=== PATIENT | female | born 1970 | race Caucasian/White ===

== ENCOUNTER 2017-10-19 14:24 | Emergency (ER) | payer MEDICARE, MEDICAID ==
[2017-10-19 16:37] VITALS: BP 95/49
--- NOTE | 2017-10-20 22:01 | UC ---
Larissa Oh Gabriel, scribed for Jamil Alonzo MD on 10/19/17 at 1801 . Throat Pain/Nasal Daniel HPI - HPI Summary HPI Summary: This patient is a 46 year old F presenting to [facility] – [place] with a chief complaint of intermittent sore throat for the last three months. The patient rates the pain 6 /10 in severity and describes the pain as a raw feeling. Patient reports some bloody phlegm and SOB. Patient denies fever, chills, and CP. Patient recently quit smoking - History of Current Complaint Chief Complaint: UCRespiratory Stated Complaint: THROAT PAIN Time Seen by Provider: 10/19/17 17:57 Hx Obtained From: Patient Hx Last Menstrual Period: today Onset/Duration: Lasting Weeks - 12, Still Present Severity: Moderate Pain Intensity: 6 Pain Scale Used: 0-10 Numeric Cough: Sputum Appears Associated Signs & Symptoms: Positive: Negative - fever, chills, CP, Other - SOB - Allergies/Home Medications Allergies/Adverse Reactions: Allergies Allergy/AdvReac Type Severity Reaction Status Date / Time Penicillins Allergy Unknown Verified 10/19/17 16:39 Reaction Details Home Medications: Home Medications NK [No Home Medications Reported] 10/19/17 [History Confirmed 10/19/17] PMH/Surg Hx/FS Hx/Imm Hx Other History Of: Negative For: HIV, Hepatitis B, Hepatitis C - Surgical History Surgical History: None - Family History Known Family History: Negative: Diabetes, Renal Disease, Respiratory Disease, Seizure Disorder, Blood Disorder - Social History Alcohol Use: None Substance Use Type: None Smoking Status (MU): Former Smoker Review of Systems Constitutional: Negative - fever ENT: Sore Throat, Other - some bloody phlegm Cardiovascular: Negative - CP All Other Systems Reviewed And Are Negative: Yes Physical Exam Triage Information Reviewed: Yes Vital Signs: Initial Vital Signs Temp 98.0 F 10/19/17 16:34 Pulse 72 10/19/17 16:34 Resp 18 10/19/17 16:34 BP 95/49 10/19/17 16:34 Pulse Ox 98 10/19/17 16:34 Vital Signs Reviewed: Yes - Additional Comments Vital signs: Reviewed Gen.: Patient is a well developed and nourished female in no acute distress. Patient is sitting comfortably on the stretcher. Head: Normacephalic and atraumatic Eyes: PERRLA, EOMI x2. Ears: Right ear canal and TM WNL and Left ear canal and TM WNL Nose and mouth: Nose with dry mucosa and clear discharge, mild pharyngeal erythema with no exudate. Neck: Supple, Positive bilateral submandibular and anterior cervical lymphadenopathy. No JVD Lungs: CTA B/L CVS: S1 & S2 present. No murmurs appreciated. ABDOMEN: Soft NT w/ positive BS. EXT: FROM x 4 NEURO: A+O X 3. Throat Pain/Nasal Course/Dx - Course Assessment/Plan: This patient is a 46 year old F presenting to [facility] – [place] with a chief complaint of intermittent sore throat for the last three months. The patient rates the pain 6/10 in severity and describes the pain as a raw feeling. Patient reports some bloody phlegm and SOB. Patient denies fever, chills, and CP. Patient recently quit smoking. Patient has a negative rapid strep. I discussed all the findings and test results with the patient. Pt was instructed to return to the urgent care or go to ER immediately if any of the symptoms return or worsens. Plan of care was discussed with the patient and pt understands and agrees. All questions were answered to patient satisfaction. There were no further complaints or concerns. . Patient will be diagnosed with Viral laryngitis. Patient will be discharged and follow up from PCP. The patient is agreeable with this plan. - Differential Dx/Diagnosis Differential Diagnosis/HQI/PQRI: Laryngitis, Pharyngitis, Tonsillitis, URI Provider Diagnoses: Pharyngitis likely viral Discharge - Discharge Plan Condition: Stable Disposition: HOME Patient Education Materials: Pharyngitis (ED) Referrals: Florecita Vieira MD [Primary Care Provider] - Additional Instructions: Take tylenol or ibuprofen as instructed Increase your fluid intake Return to the if symptoms worsen The documentation as recorded by the Larissa carrion Gabriel accurately reflects the service I personally performed and the decisions made by me, Jamil Alonzo MD.
== END 2017-10-19 18:35 | disposition home or self-care (01) ==
LOC: UCEAST 14:24
DX: J02.9 Acute pharyngitis, unspecified (principal); Z88.0 Allergy status to penicillin; Z87.891 Personal history of nicotine dependence
CPT/HCPCS: 87651; 99211; G0463

== ENCOUNTER 2018-12-19 18:54 | Emergency (ER) | payer MEDICARE, MEDICAID | END 2018-12-19 19:14 | disposition left against medical advice (07) | LOC: ED 18:54 | DX: M25.519 Pain in unspecified shoulder (principal); Z53.21 Procedure and treatment not carried out due to patient leaving prior to being seen by health care provider ==

== ENCOUNTER 2019-07-31 08:29 | Inpatient (IN) | payer MEDICARE, MEDICAID ==
[2019-07-31 09:05] LABS: ABS Basophils 0.1 10^3/ul (0-0.2); ABS Lymphocytes 1.6 10^3/ul (1.0-4.8); ABS Monocytes 0.3 10^3/ul (0-0.8); ABS Neutrophils 3.8 10^3/ul (1.5-7.7); Eosinophil % 0.5 %; Hematocrit 43 % (35-47); Hemoglobin 14.7 g/dL (12.0-16.0); Lymphocyte % 28.1 %; Mean Corpuscular HGB Conc 34 g/dL (31-36); Mean Corpuscular Hemoglobin 33 pg (27-31); Mean Corpuscular Volume 97 fL (80-97); Mean Platelet Volume 7.1 fL (7.4-10.4); Nucleated Red Blood Cells % 0.1; Platelet Count 321 10^3/uL (150-450); Red Blood Count 4.48 10^6 /uL (3.70-4.87); Red Cell Distribution Width 13 % (10-15); White Blood Count 5.8 10^3/uL (3.5-10.8)
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
[2019-07-31 09:20] LABS: ALT 9 U/L (7-52); AST 11 U/L (13-39); Albumin 4.6 g/dL (3.2-5.2); Albumin/Globulin Ratio 1.5 (1-3); Alkaline Phosphatase 36 U/L (34-104); Anion Gap 6 mmol/L (2-11); BUN/Creatinine Ratio 17.3 (8-20); Blood Urea Nitrogen 13 mg/dL (6-24); CO2 Carbon Dioxide 28 mmol/L (22-32); Chloride 106 mmol/L (101-111); EGFR African American 99.4 (>60); EGFR Non-African American 82.1 (>60); Glucose 99 mg/dL (70-100); Potassium 3.7 mmol/L (3.5-5.0); Sodium 140 mmol/L (135-145); Total Protein 7.6 g/dL (6.4-8.9)
[2019-07-31 09:57] LABS: Acetaminophen < 15 mcg/mL; Alcohol < 10 mg/dL (<10); Salicylate < 2.50 mg/dL (<30)
[2019-07-31 10:06] LABS: HIV 4th Generation Nonreactive (Nonreactive)
[2019-07-31 10:11] LABS: TSH (Thyroid Stimulating Horm) 0.97 mcIU/mL (0.34-5.60)
[2019-07-31 11:30] LABS: Urine Appearance Cloudy; Urine Bacteria Absent (Absent); Urine Bilirubin Negative (Negative); Urine Blood Negative (Negative); Urine Color Yellow; Urine Glucose Negative (Negative); Urine Ketones Negative (Negative); Urine Nitrite Negative (Negative); Urine Protein 1+(30 mg/dL) (Negative); Urine Red Blood Cell 2+(6-10/hpf) (Absent); Urine Specific Gravity 1.027 (1.010-1.030); Urine Squamous Epithelial Cell Present (Absent); Urine Urobilinogen Negative (Negative); Urine White Blood Cell 2+(11-20/hpf) (Absent)
[2019-07-31 11:41] LABS: Urine Benzodiazepine Screen None Detected (None Detect); Urine Opiates Screen None Detected (None Detect)
[2019-07-31] MEDS ORDERED: Ondansetron INJ* 2 MG/ML VIAL IV ONE (13:14)
[2019-07-31] MEDS ORDERED: Ondansetron ODT TAB* 4 MG PO ONE (13:18)
[2019-07-31] MEDS ORDERED: Ondansetron ODT TAB* 4 MG SL ONE (15:35)
[2019-07-31] MEDS ORDERED: Metoclopramide TAB* 10 MG PO ONE (17:19)
--- NOTE | 2019-07-31 19:46 | ED ---
Progress - Consult/PCP Time Called: 15:00 Re-Evaluation - Re-Evaluation First Eval Re-Evaluation Time: 11:30 Change: Improved - pt denies any nausea/vomiting or abd pain Second Eval Change: Worse - pt c/o chest pain - diffuse - EKG obtained which shows NSR and troponin obtaine Course/Dx - Course Course Of Treatment: On arrival into the ED, an EKG was immediately performed. This shows normal sinus rhythm. Arrival into the ED, an EKG was performed. This shows normal sinus rhythm. Patient appears well and stable, nondiaphoretic and nontoxic appearing. Pupils pinpoint non-reactive. Pt c/o abd pain without nausea. No difficulty breathing. Denies SOB. Pt afebrile, no tachycardia and appears stable. Poison control called at 9:05am. patient is medically clear. patient will be admitted by dr yung for mood disorder - Diagnoses Provider Diagnoses: Mood disorder Discharge ED - Sign-Out/Discharge Documenting (check all that apply): Patient Departure, Receiving Sign-Out Receiving patient FROM: Kristi Overton - Discharge Plan Condition: Stable Disposition: PSYCHIATRIC FACILITY[place] [place] - Billing Disposition and Condition Condition: STABLE Disposition: Psychiatric Facility [facility] [place] - Attestation Statements Provider Attestation: I was available for consult. This patient was seen by the GIBSON. The patient was not presented to, seen by, or examined by me. -
[2019-08-01] MEDS ORDERED: Al Hydrox/Mg Hydrox/Simet LIQ* 30 ML UDC PO PRN (00:20)
[2019-08-01] MEDS: Vitamin THERAPEUTIC TAB PO SCH (08:27)
[2019-08-01 08:37] LABS: HDL Cholesterol 64.1 mg/dL
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
[2019-08-01] MEDS ORDERED: cloNIDine TAB* 0.1 MG PO ONE (12:59)
[2019-08-01] MEDS ORDERED: Loperamide CAP* 2 MG PO ONE (13:03)
[2019-08-01] MEDS ORDERED: Nicotine* 2MG (FRUIT FLAVOR) GUM PO PRN (13:28)
[2019-08-01] MEDS: Escitalopram * 10 MG TAB PO SCH (14:06)
[2019-08-01] MEDS: Acetaminophen TAB* 325 MG PO PRN (14:08)
[2019-08-01] MEDS: traZODone TAB* 50 MG TAB PO SCH (21:44)
[2019-08-02] MEDS: cloNIDine TAB* 0.1 MG PO PRN ×3 (04:50→16:15)
[2019-08-02] MEDS: Escitalopram * 10 MG TAB PO SCH (09:37)
[2019-08-02] MEDS: Vitamin THERAPEUTIC TAB PO SCH (09:37)
--- NOTE | 2019-08-02 10:11 | PN ---
Subjective - Subjective Date of Service: 08/02/19 Service Type: 35080 Hosp care 35 min high complexity Subjective: CC: " I feel bad" Patient reported feeling "horrible" due to current living situation, feeling depressed and legal issues. She reported that she wants to stop using drugs. She reported adequate sleep and appetite. No behavioral incidents overnight. She reported that having menopausal symptoms and cause her to be stressed out. Objective - General Observations Appearance: Disheveled Appears Stated Age: Yes Stature: Thin Posture: Slumped Eye Contact: Avoidant Behavior/Activity: Impulsive - Interaction Observations Attitude Towards Examiner: Anxious Stated Mood: Dysphoric Affect: Restricted Speech Pattern/Tone: Normal Volume Thought Process: [place] Perception: Depersonalization Thought Content: Self-Deprecatory Thought Process: Lethality: Passive Wish Hallucination Type: Denies Delusion Type: Somatic - Cognitive Function Orientation: A&O x 4 Level of Consciousness: Awake - Medication Compliance Cooperative with Inpatient Medication Regimen: Yes - Group Participation Participates in Group Activities: Partial Assessment - Assessment Merits Inpatient Hospitalization: For Immediate Safety Clinical Impression: 48 year old female with history of Borderline Personality Disorder, Tobacco use disorder, Cocaine use disorder, Opiate withdrawal came to the hospital following a suicide attempt. Plan - Plan Treatment Plan: Name: SMILEY AYALA Birthdate: 1970 [id number] Plan #Q15 minute observation # The patient requires psychiatric inpatient admission at this time to assure safety, receive treatment and work toward stabilization. # Clonidine Opiate withdrawal protocol with holding parameters in order set # Continue lexapro 10mg po daily for depression # Menopause symptoms SSRI can help and recommend [facility]. # EKG ordered and reviewed # DBT for BPD # Follow up care to be arranged # Obtain collateral information once release is signed. # Collaboration with Social Work Substance Abuse resources offered and patient interested in pursing substance abuse rehabilitation Tobacco use disorder: nicotine supplement offered and put in place. #Goals before discharge include: To eliminate/ reduce suicidal ideation Tentative Discharge: Pending psychiatric stabilization Sodium 140 mmol/L (135-145) 07/31/19 08:54 Potassium 3.7 mmol/L (3.5-5.0) 07/31/19 08:54 BUN 13 mg/dL (6-24) 07/31/19 08:54 Creatinine 0.75 mg/dL (0.51-0.95) 07/31/19 08:54 Hemoglobin A1c 5.3 % (4.0-5.6) 08/01/19 07:41 Calcium 10.0 mg/dL (8.6-10.3) 07/31/19 08:54 AST 11 U/L (13-39) L 07/31/19 08:54 ALT 9 U/L (7-52) 07/31/19 08:54 Triglycerides 81 mg/dL 08/01/19 07:41 Cholesterol 191 mg/dL 08/01/19 07:41 LDL Cholesterol 111 mg/dL 08/01/19 07:41 Continued Medication Management: Continue Outpt Medication Medications: Current Medications Acetaminophen (Tylenol Tab*) 650 mg PO Q4H PRN PRN Reason: PAIN or TEMP > 101 F Last Admin: 08/01/19 14:08 Dose: 650 mg Al Hydrox/Mg Hydrox/Simethicone (Maalox Plus*) 30 ml PO Q4H PRN PRN Reason: INDIGESTION Clonidine HCl (Catapres Tab*) 0.1 mg PO Q4H PRN PRN Reason: WITHDRAWAL - OPIATE Last Admin: 08/02/19 09:37 Dose: 0.1 mg Escitalopram Oxalate (Lexapro *) 10 mg PO DAILY [facility] Last Admin: 08/02/19 09:37 Dose: 10 mg Multivitamins (Theragran Tab*) 1 tab PO DAILY [facility] Last Admin: 08/02/19 09:37 Dose: 1 tab Nicotine Polacrilex (Nicotine Gum*) 2 mg PO Q2H PRN PRN Reason: CRAVING Trazodone HCl (Desyrel Tab*) 50 mg PO BEDTIME [facility] Last Admin: 08/01/19 21:44 Dose: 50 mg - Discharge Plan Discharge Plan: Inpatient Hospitalization
[2019-08-02 20:53] LABS: Hepatitis C Antibody Negative (Negative)
[2019-08-02] MEDS: traZODone TAB* 50 MG TAB PO SCH (21:19)
[2019-08-03] MEDS: Escitalopram * 10 MG TAB PO SCH (08:38)
[2019-08-03] MEDS: Vitamin THERAPEUTIC TAB PO SCH (08:38)
[2019-08-03] MEDS ORDERED: Influenza VAC *QUAD* 2019-20* 0.5 ML SYRINGE IM ONE (09:00)
[2019-08-03] MEDS: cloNIDine TAB* 0.1 MG PO PRN (14:57)
[2019-08-03] MEDS: traZODone TAB* 50 MG TAB PO SCH (22:05)
[2019-08-04] MEDS: Vitamin THERAPEUTIC TAB PO SCH (09:35)
[2019-08-04] MEDS: Escitalopram * 10 MG TAB PO SCH (09:35)
[2019-08-04] MEDS: cloNIDine TAB* 0.1 MG PO PRN ×2 (09:36→19:06)
--- NOTE | 2019-08-04 19:26 | PN ---
Subjective - Subjective Date of Service: 08/04/19 Subjective: Smiley c/o feeling cold, headache and body aches, poor sleep. She endorses depressed mood and suicidal ideation but contracts to approach staff. She finds the Clonidine helpful. She is receptive to support and psycho-education and remains motivated to go to inpatient rehab. Per staff, she remains adherent to unit's routines. Objective - General Observations Appearance: Well Groomed Appears Stated Age: Yes Stature: WNL Posture: WNL Eye Contact: Average Behavior/Activity: WNL - Interaction Observations Attitude Towards Examiner: Cooperative Stated Mood: Dysphoric, Anxious Affect: Restricted Speech Pattern/Tone: Clear, Appropriate, Normal Volume Thought Process: Coherent, Goal Directed Perception: WNL Thought Content: WNL Thought Process: Lethality: Passive Wish Hallucination Type: None Delusion Type: None - Cognitive Function Orientation: A&O x 4 Level of Consciousness: Alert Cognition: WNL Judgment Within Normal Limits: Yes - Medication Compliance Cooperative with Inpatient Medication Regimen: Yes - Group Participation Participates in Group Activities: Yes Assessment - Assessment Merits Inpatient Hospitalization: For Ongoing Evaluation, Consolidate Improvements, For Discharge Planning Clinical Impression: 48 year old female with history of Borderline Personality Disorder, Tobacco use disorder, Cocaine use disorder, Opiate withdrawal came to the hospital following a suicide attempt. Progressing through detox from opiates with some discomfort but remains motivated for inpatient rehab. Plan - Plan Treatment Plan: Name: SMILEY AYALA Birthdate: 1970 [id number] Plan #Q15 minute observation # The patient requires psychiatric inpatient admission at this time to assure safety, receive treatment and work toward stabilization. # Clonidine Opiate withdrawal protocol with holding parameters in order set # Continue lexapro 10mg po daily for depression # Menopause symptoms SSRI can help and [facility]. # EKG ordered and reviewed # DBT for BPD # Follow up care to be arranged # Obtain collateral information once release is signed. # Collaboration with Social Work Substance Abuse resources offered and patient interested in pursing substance abuse rehabilitation Tobacco use disorder: nicotine supplement offered and put in place. #Goals before discharge include: To eliminate/ reduce suicidal ideation Tentative Discharge: Pending psychiatric stabilization Sodium 140 mmol/L (135-145) 07/31/19 08:54 Potassium 3.7 mmol/L (3.5-5.0) 07/31/19 08:54 BUN 13 mg/dL (6-24) 07/31/19 08:54 Creatinine 0.75 mg/dL (0.51-0.95) 07/31/19 08:54 Hemoglobin A1c 5.3 % (4.0-5.6) 08/01/19 07:41 Calcium 10.0 mg/dL (8.6-10.3) 07/31/19 08:54 AST 11 U/L (13-39) L 07/31/19 08:54 ALT 9 U/L (7-52) 07/31/19 08:54 Triglycerides 81 mg/dL 08/01/19 07:41 Cholesterol 191 mg/dL 08/01/19 07:41 LDL Cholesterol 111 mg/dL 08/01/19 07:41 Medications: Current Medications Acetaminophen (Tylenol Tab*) 650 mg PO Q4H PRN PRN Reason: PAIN or TEMP > 101 F Last Admin: 08/01/19 14:08 Dose: 650 mg Al Hydrox/Mg Hydrox/Simethicone (Maalox Plus*) 30 ml PO Q4H PRN PRN Reason: INDIGESTION Clonidine HCl (Catapres Tab*) 0.1 mg PO Q4H PRN PRN Reason: WITHDRAWAL - OPIATE Last Admin: 08/04/19 19:06 Dose: 0.1 mg Escitalopram Oxalate (Lexapro *) 10 mg PO DAILY [facility] Last Admin: 08/04/19 09:35 Dose: 10 mg Multivitamins (Theragran Tab*) 1 tab PO DAILY [facility] Last Admin: 08/04/19 09:35 Dose: 1 tab Nicotine Polacrilex (Nicotine Gum*) 2 mg PO Q2H PRN PRN Reason: CRAVING Trazodone HCl (Desyrel Tab*) 50 mg PO BEDTIME [facility] Last Admin: 08/03/19 22:05 Dose: 50 mg - Discharge Plan Discharge Plan: Drug/Alcohol Rehab Outpatient Program: TBD
[2019-08-04] MEDS: traZODone TAB* 50 MG TAB PO SCH (22:03)
[2019-08-05] MEDS: Escitalopram * 10 MG TAB PO SCH (09:41)
[2019-08-05] MEDS: Vitamin THERAPEUTIC TAB PO SCH (09:41)
--- NOTE | 2019-08-05 11:59 | PN ---
Subjective - Subjective Date of Service: 08/05/19 Service Type: 43234 Hosp care 35 min high complexity Subjective: Nursing Report: Patient was visible on unit, no behavioral incidents. Slept overnight. CC: "I feel awful" Patient was seen and evaluated today. She reported being depressed and suicidal and "feels awful". The patient reported having mental health court today for legal charges and plans to contact her sports development officer. Patient reported being in pain all over. Patient reported having hot flashes. Patient slept 6.5 hours overnight The patient reported attending some groups. Patient reported that she is tolerating medications without side effects. Objective - General Observations Appearance: Neat Appears Stated Age: Yes Stature: Thin Posture: Slumped Eye Contact: Avoidant Behavior/Activity: Slowed - Interaction Observations Attitude Towards Examiner: Confused Stated Mood: Dysphoric Affect: Restricted Speech Pattern/Tone: Perseverating Thought Process: [place] Perception: WNL Thought Content: Self-Deprecatory Thought Process: Lethality: Passive Wish Hallucination Type: Denies Delusion Type: Somatic - Cognitive Function Orientation: A&O x 4 Level of Consciousness: Awake - Medication Compliance Cooperative with Inpatient Medication Regimen: Yes - Group Participation Participates in Group Activities: Partial Assessment - Assessment Merits Inpatient Hospitalization: For Immediate Safety Clinical Impression: 48 year old female with history of Borderline Personality Disorder, Tobacco use disorder, Cocaine use disorder, Opiate withdrawal came to the hospital following a suicide attempt by overdosing on Tramadol. Plan - Plan Treatment Plan: Name: SMILEY AYALA Birthdate: 1970 [id number] Plan #Q15 minute observation # The patient requires psychiatric inpatient admission at this time to assure safety, receive treatment and work toward stabilization. # Discontinue Clonidine # Increase lexapro 20mg po daily for depression # Menopause symptoms SSRI can help and [facility]. # EKG ordered and reviewed # DBT for BPD # Follow up care to be arranged # Substance abuse rehabilitation referrals sent # Collaboration with Social Work Substance Abuse resources offered and patient interested in pursing substance abuse rehabilitation Tobacco use disorder: nicotine supplement offered and put in place. #Goals before discharge include: To eliminate/ reduce suicidal ideation Tentative Discharge: Pending psychiatric stabilization Sodium 140 mmol/L (135-145) 07/31/19 08:54 Potassium 3.7 mmol/L (3.5-5.0) 07/31/19 08:54 BUN 13 mg/dL (6-24) 07/31/19 08:54 Creatinine 0.75 mg/dL (0.51-0.95) 07/31/19 08:54 Hemoglobin A1c 5.3 % (4.0-5.6) 08/01/19 07:41 Calcium 10.0 mg/dL (8.6-10.3) 07/31/19 08:54 AST 11 U/L (13-39) L 07/31/19 08:54 ALT 9 U/L (7-52) 07/31/19 08:54 Triglycerides 81 mg/dL 08/01/19 07:41 Cholesterol 191 mg/dL 08/01/19 07:41 LDL Cholesterol 111 mg/dL 08/01/19 07:41 Continued Medication Management: Continue Outpt Medication Medications: Current Medications Acetaminophen (Tylenol Tab*) 650 mg PO Q4H PRN PRN Reason: PAIN or TEMP > 101 F Last Admin: 08/01/19 14:08 Dose: 650 mg Al Hydrox/Mg Hydrox/Simethicone (Maalox Plus*) 30 ml PO Q4H PRN PRN Reason: INDIGESTION Clonidine HCl (Catapres Tab*) 0.1 mg PO Q4H PRN PRN Reason: WITHDRAWAL - OPIATE Last Admin: 08/04/19 19:06 Dose: 0.1 mg Escitalopram Oxalate (Lexapro *) 10 mg PO DAILY [facility] Last Admin: 08/05/19 09:41 Dose: 10 mg Multivitamins (Theragran Tab*) 1 tab PO DAILY [facility] Last Admin: 08/05/19 09:41 Dose: 1 tab Nicotine Polacrilex (Nicotine Gum*) 2 mg PO Q2H PRN PRN Reason: CRAVING Sodium Chloride (Sodium Chloride 0.65% Nasal Drops*) 1 drop BOTH NARES Q4H PRN PRN Reason: DRY NOSE Trazodone HCl (Desyrel Tab*) 50 mg PO BEDTIME [facility] Last Admin: 08/04/19 22:03 Dose: 50 mg - Discharge Plan Discharge Plan: Inpatient Hospitalization
[2019-08-05] MEDS ORDERED: Loperamide CAP* 2 MG PO PRN (13:14)
[2019-08-05] MEDS ORDERED: Loperamide CAP* 2 MG PO ONE (13:51)
[2019-08-05] MEDS: traZODone TAB* 50 MG TAB PO SCH (20:50)
[2019-08-06] MEDS: Vitamin THERAPEUTIC TAB PO SCH (09:46)
[2019-08-06] MEDS: Escitalopram * 10 MG TAB PO SCH (09:46)
[2019-08-06] MEDS: Saline NASAL DROPS 0.65%* 1 DROP BTL BOTH NARES PRN (09:48)
[2019-08-06] MEDS ORDERED: busPIRone TAB* 15 MG PO SCH (13:00)
[2019-08-06] MEDS: Acetaminophen TAB* 325 MG PO PRN ×2 (13:06→17:47)
--- NOTE | 2019-08-06 14:45 | PN ---
Subjective - Subjective Date of Service: 08/06/19 Service Type: 73700 Hosp care 35 min high complexity Subjective: Nursing Report: Patient was visible on unit, no behavioral incidents. Slept overnight. CC: "I feel like a mess" Patient was seen and evaluated today. She reported feeling awful. The patient reported that she continues to have hot and cold sweats from menopause. The patient reported increased anxiety. Patient reported that she is tolerating medications without side effects. Objective - General Observations Appearance: Disheveled Appears Stated Age: Yes Stature: WNL Posture: WNL Eye Contact: Average Behavior/Activity: Accelerated - Interaction Observations Attitude Towards Examiner: Anxious Stated Mood: Dysphoric Affect: Flat Speech Pattern/Tone: Excessive Thought Process: Disorganized Perception: Depersonalization Thought Content: Self-Deprecatory Thought Process: Lethality: Passive Wish Hallucination Type: Denies Delusion Type: Somatic - Cognitive Function Orientation: A&O x 4 Level of Consciousness: Awake - Medication Compliance Cooperative with Inpatient Medication Regimen: Yes - Group Participation Participates in Group Activities: Partial Assessment - Assessment Merits Inpatient Hospitalization: For Immediate Safety Clinical Impression: 48 year old female with history of Borderline Personality Disorder, Tobacco use disorder, Cocaine use disorder, Opiate withdrawal came to the hospital following a suicide attempt by overdosing on Tramadol. Plan - Plan Treatment Plan: Name: SMILEY AYALA Birthdate: 1970 [id number] Plan #Q15 minute observation # The patient requires psychiatric inpatient admission at this time to assure safety, receive treatment and work toward stabilization. # Increase lexapro 20mg po daily for depression # DBT # Buspar 15mg TID for anxiety # Substance abuse rehabilitation referral # Collaboration with Social Work Substance Abuse resources offered and patient interested in pursing substance abuse rehabilitation Tobacco use disorder: nicotine supplement offered and put in place. #Goals before discharge include: To eliminate/ reduce suicidal ideation Tentative Discharge: Pending psychiatric stabilization Sodium 140 mmol/L (135-145) 07/31/19 08:54 Potassium 3.7 mmol/L (3.5-5.0) 07/31/19 08:54 BUN 13 mg/dL (6-24) 07/31/19 08:54 Creatinine 0.75 mg/dL (0.51-0.95) 07/31/19 08:54 Hemoglobin A1c 5.3 % (4.0-5.6) 08/01/19 07:41 Calcium 10.0 mg/dL (8.6-10.3) 07/31/19 08:54 AST 11 U/L (13-39) L 07/31/19 08:54 ALT 9 U/L (7-52) 07/31/19 08:54 Triglycerides 81 mg/dL 08/01/19 07:41 Cholesterol 191 mg/dL 08/01/19 07:41 LDL Cholesterol 111 mg/dL 08/01/19 07:41 Continued Medication Management: Continue Outpt Medication Medications: Current Medications Acetaminophen (Tylenol Tab*) 650 mg PO Q4H PRN PRN Reason: PAIN or TEMP > 101 F Last Admin: 08/06/19 13:06 Dose: 650 mg Al Hydrox/Mg Hydrox/Simethicone (Maalox Plus*) 30 ml PO Q4H PRN PRN Reason: INDIGESTION Buspirone HCl (Buspar Tab *) 15 mg PO BID [facility] Last Admin: 08/06/19 13:08 Dose: 15 mg Escitalopram Oxalate (Lexapro *) 20 mg PO DAILY [facility] Last Admin: 08/06/19 09:46 Dose: 20 mg Multivitamins (Theragran Tab*) 1 tab PO DAILY [facility] Last Admin: 08/06/19 09:46 Dose: 1 tab Nicotine Polacrilex (Nicotine Gum*) 2 mg PO Q2H PRN PRN Reason: CRAVING Sodium Chloride (Sodium Chloride 0.65% Nasal Drops*) 1 drop BOTH NARES Q4H PRN PRN Reason: DRY NOSE Last Admin: 08/06/19 09:48 Dose: 2 drp Trazodone HCl (Desyrel Tab*) 50 mg PO BEDTIME [facility] Last Admin: 08/05/19 20:50 Dose: 50 mg - Discharge Plan Discharge Plan: Drug/Alcohol Rehab
[2019-08-06] MEDS: busPIRone TAB* 15 MG PO SCH ×2 (15:32→21:22)
[2019-08-06] MEDS: traZODone TAB* 50 MG TAB PO SCH (21:22)
[2019-08-07] MEDS: busPIRone TAB* 15 MG PO SCH ×3 (08:31→21:19)
[2019-08-07] MEDS: Escitalopram * 10 MG TAB PO SCH (08:31)
[2019-08-07] MEDS: Vitamin THERAPEUTIC TAB PO SCH (08:31)
--- NOTE | 2019-08-07 14:18 | PN ---
Subjective - Subjective Date of Service: 08/08/19 Service Type: 55465 Hosp care 35 min high complexity Subjective: Nursing Report: Patient was visible on unit, no behavioral incidents. Slept overnight. Attending group activities. CC: "I am trying my best Patient was seen and evaluated today in the common room. The patient reported she fis doing her best. She is requesting a UA to be done because she thinks she has a UTI She reported having adequate appetite and sleep. The patient reports attending and participating in day groups. Per nursing no behavioral issues or overnight events reported. Patient reported that she is tolerating medications without side effects. Objective - General Observations Appearance: Neat Appears Stated Age: Yes Stature: WNL Posture: WNL Eye Contact: Average Behavior/Activity: Slowed - Interaction Observations Attitude Towards Examiner: Anxious, Dismissive Stated Mood: Dysphoric Affect: Restricted Speech Pattern/Tone: Normal Volume Thought Process: [place] Perception: Depersonalization Thought Content: Self-Deprecatory Hallucination Type: Denies Delusion Type: Denies - Cognitive Function Orientation: A&O x 4 Level of Consciousness: Awake - Medication Compliance Cooperative with Inpatient Medication Regimen: Yes - Group Participation Participates in Group Activities: Yes Assessment - Assessment Merits Inpatient Hospitalization: For Immediate Safety Clinical Impression: 48 year old female with history of Borderline Personality Disorder, Tobacco use disorder, Cocaine use disorder, Opiate withdrawal came to the hospital following a suicide attempt by overdosing on Tramadol. Plan - Plan Treatment Plan: Name: SMILEY AYALA Birthdate: 1970 [id number] Plan #Q30 minute observation with staff pass # The patient requires psychiatric inpatient admission at this time to assure safety, receive treatment and work toward stabilization. # Continue lexapro 20mg po daily for depression # DBT # Buspar 15mg TID for anxiety # Substance abuse rehabilitation referral # Collaboration with Social Work Substance Abuse resources offered and patient interested in pursing substance abuse rehabilitation Tobacco use disorder: nicotine supplement offered and put in place. #Goals before discharge include: To eliminate/ reduce suicidal ideation Tentative Discharge: Pending psychiatric stabilization Sodium 140 mmol/L (135-145) 07/31/19 08:54 Potassium 3.7 mmol/L (3.5-5.0) 07/31/19 08:54 BUN 13 mg/dL (6-24) 07/31/19 08:54 Creatinine 0.75 mg/dL (0.51-0.95) 07/31/19 08:54 Hemoglobin A1c 5.3 % (4.0-5.6) 08/01/19 07:41 Calcium 10.0 mg/dL (8.6-10.3) 07/31/19 08:54 AST 11 U/L (13-39) L 07/31/19 08:54 ALT 9 U/L (7-52) 07/31/19 08:54 Triglycerides 81 mg/dL 08/01/19 07:41 Cholesterol 191 mg/dL 08/01/19 07:41 LDL Cholesterol 111 mg/dL 08/01/19 07:41 Continued Medication Management: Continue Outpt Medication Medications: Current Medications Acetaminophen (Tylenol Tab*) 650 mg PO Q4H PRN PRN Reason: PAIN or TEMP > 101 F Last Admin: 08/06/19 17:47 Dose: 650 mg Al Hydrox/Mg Hydrox/Simethicone (Maalox Plus*) 30 ml PO Q4H PRN PRN Reason: INDIGESTION Buspirone HCl (Buspar Tab *) 15 mg PO TID [facility] Last Admin: 08/07/19 14:05 Dose: 15 mg Escitalopram Oxalate (Lexapro *) 20 mg PO DAILY [facility] Last Admin: 08/07/19 08:31 Dose: 20 mg Multivitamins (Theragran Tab*) 1 tab PO DAILY [facility] Last Admin: 08/07/19 08:31 Dose: 1 tab Nicotine Polacrilex (Nicotine Gum*) 2 mg PO Q2H PRN PRN Reason: CRAVING Polyvinyl Alcohol (Polyvinyl Alcohol 1.4% Opth*) 1 drop BOTH EYES Q2H PRN PRN Reason: DRY EYE Sodium Chloride (Sodium Chloride 0.65% Nasal Drops*) 1 drop BOTH NARES Q4H PRN PRN Reason: DRY NOSE Last Admin: 08/06/19 09:48 Dose: 2 drp Trazodone HCl (Desyrel Tab*) 50 mg PO BEDTIME [facility] Last Admin: 08/06/19 21:22 Dose: 50 mg - Discharge Plan Discharge Plan: Drug/Alcohol Rehab
[2019-08-07 14:48] LABS: Urine Appearance Cloudy; Urine Bilirubin Negative (Negative); Urine Blood Negative (Negative); Urine Color Yellow; Urine Glucose Negative (Negative); Urine Ketones Negative (Negative); Urine Nitrite Negative (Negative); Urine Protein Negative (Negative); Urine Specific Gravity 1.023 (1.010-1.030); Urine Urobilinogen Negative (Negative)
[2019-08-07] MEDS: Artificial Tears* 15 ML BTL BOTH EYES PRN ×2 (16:27→18:27)
[2019-08-07] MEDS: traZODone TAB* 50 MG TAB PO SCH (21:19)
[2019-08-08] MEDS: busPIRone TAB* 15 MG PO SCH ×3 (09:44→21:17)
[2019-08-08] MEDS: Escitalopram * 10 MG TAB PO SCH (09:44)
[2019-08-08] MEDS: Vitamin THERAPEUTIC TAB PO SCH (09:45)
--- NOTE | 2019-08-08 13:05 | PN ---
BSU: Group Therapy Note - Service Type Service Type: 30147 Group Psychotherapy - Cognitive Behavioral Group Therapy ( CBT):Patient was attentive and participatory in CBT programming this morning, and remained in good behavioral control. Patient expressed positive insights regarding relevant treatment interventions and goals.
[2019-08-08] MEDS: Artificial Tears* 15 ML BTL BOTH EYES PRN (14:04)
[2019-08-08] MEDS: Acetaminophen TAB* 325 MG PO PRN (17:57)
[2019-08-08] MEDS: traZODone TAB* 50 MG TAB PO SCH (21:17)
[2019-08-09] MEDS: busPIRone TAB* 15 MG PO SCH ×3 (09:19→21:51)
[2019-08-09] MEDS: Escitalopram * 10 MG TAB PO SCH (09:19)
[2019-08-09] MEDS: Vitamin THERAPEUTIC TAB PO SCH (09:20)
[2019-08-09] MEDS: Saline NASAL DROPS 0.65%* 1 DROP BTL BOTH NARES PRN (09:22)
[2019-08-09] MEDS: Artificial Tears* 15 ML BTL BOTH EYES PRN ×2 (09:22→14:04)
--- NOTE | 2019-08-09 11:08 | PN ---
BSU: Group Therapy Note - Service Type Service Type: 61639 Group Psychotherapy - Cognitive Behavioral Group Therapy ( CBT):Patient was attentive and participatory in CBT programming this morning, and remained in good behavioral control. Patient expressed positive insights regarding relevant treatment interventions and goals.
--- NOTE | 2019-08-09 16:01 | PN ---
Subjective - Subjective Date of Service: 08/09/19 Service Type: 12726 Hosp care 35 min high complexity Subjective: Nursing Report: Patient was visible on unit, no behavioral incidents. Slept overnight. Attending group activities. CC: "I am trying Patient was seen and evaluated today in the common room. She reported having adequate appetite and sleep. The patient reports attending and participating in day groups. Per nursing no behavioral issues or overnight events reported. Patient reported that she is tolerating medications without side effects. Objective - General Observations Appearance: Neat Appears Stated Age: Yes Stature: WNL Posture: WNL Eye Contact: Average Behavior/Activity: Accelerated - Interaction Observations Attitude Towards Examiner: Cooperative Stated Mood: Dysphoric Affect: Blunted Speech Pattern/Tone: Clear Thought Process: Coherent Perception: WNL Thought Content: Self-Deprecatory Thought Process: Lethality: Passive Wish Hallucination Type: None Delusion Type: None - Cognitive Function Orientation: A&O x 4 Level of Consciousness: Awake - Medication Compliance Cooperative with Inpatient Medication Regimen: Yes - Group Participation Participates in Group Activities: Yes Assessment - Assessment Merits Inpatient Hospitalization: For Immediate Safety Clinical Impression: 48 year old female with history of Borderline Personality Disorder, Tobacco use disorder, Cocaine use disorder, Opiate withdrawal came to the hospital following a suicide attempt by overdosing on Tramadol. Plan - Plan Treatment Plan: Name: SMILEY AYALA Birthdate: 1970 [id number] Plan #Q30 minute observation with staff pass # The patient requires psychiatric inpatient admission at this time to assure safety, receive treatment and work toward stabilization. # Continue lexapro 20mg po daily for depression # DBT # Increase Trazodone 100mg qhs # Buspar 15mg TID for anxiety # Substance abuse rehabilitation referral made and [facility] August 20 has a opening # Will place referral for [facility] inpatient # Collaboration with Social Work Substance Abuse resources offered and patient interested in pursing substance abuse rehabilitation Tobacco use disorder: nicotine supplement offered and put in place. #Goals before discharge include: To eliminate/ reduce suicidal ideation Tentative Discharge: Pending psychiatric stabilization Sodium 140 mmol/L (135-145) 07/31/19 08:54 Potassium 3.7 mmol/L (3.5-5.0) 07/31/19 08:54 BUN 13 mg/dL (6-24) 07/31/19 08:54 Creatinine 0.75 mg/dL (0.51-0.95) 07/31/19 08:54 Hemoglobin A1c 5.3 % (4.0-5.6) 08/01/19 07:41 Calcium 10.0 mg/dL (8.6-10.3) 07/31/19 08:54 AST 11 U/L (13-39) L 07/31/19 08:54 ALT 9 U/L (7-52) 07/31/19 08:54 Triglycerides 81 mg/dL 08/01/19 07:41 Cholesterol 191 mg/dL 08/01/19 07:41 LDL Cholesterol 111 mg/dL 08/01/19 07:41 Continued Medication Management: Continue Outpt Medication Medications: Current Medications Acetaminophen (Tylenol Tab*) 650 mg PO Q4H PRN PRN Reason: PAIN or TEMP > 101 F Last Admin: 08/08/19 17:57 Dose: 650 mg Al Hydrox/Mg Hydrox/Simethicone (Maalox Plus*) 30 ml PO Q4H PRN PRN Reason: INDIGESTION Buspirone HCl (Buspar Tab *) 15 mg PO TID [facility] Last Admin: 08/09/19 14:03 Dose: 15 mg Escitalopram Oxalate (Lexapro *) 20 mg PO DAILY [facility] Last Admin: 08/09/19 09:19 Dose: 20 mg Multivitamins (Theragran Tab*) 1 tab PO DAILY [facility] Last Admin: 08/09/19 09:20 Dose: 1 tab Nicotine Polacrilex (Nicotine Gum*) 2 mg PO Q2H PRN PRN Reason: CRAVING Polyvinyl Alcohol (Polyvinyl Alcohol 1.4% Opth*) 1 drop BOTH EYES Q2H PRN PRN Reason: DRY EYE Last Admin: 08/09/19 14:04 Dose: 1 drop Sodium Chloride (Sodium Chloride 0.65% Nasal Drops*) 1 drop BOTH NARES Q4H PRN PRN Reason: DRY NOSE Last Admin: 08/09/19 09:22 Dose: 1 drp Trazodone HCl (Desyrel Tab*) 100 mg PO BEDTIME [facility] - Discharge Plan Discharge Plan: Drug/Alcohol Rehab
[2019-08-09] MEDS: traZODone TAB* 50 MG TAB PO SCH (21:51)
[2019-08-09] MEDS: Acetaminophen TAB* 325 MG PO PRN (21:54)
[2019-08-10] MEDS: Escitalopram * 10 MG TAB PO SCH (09:28)
[2019-08-10] MEDS: busPIRone TAB* 15 MG PO SCH ×3 (09:28→20:25)
[2019-08-10] MEDS: Vitamin THERAPEUTIC TAB PO SCH (09:29)
[2019-08-10] MEDS: Artificial Tears* 15 ML BTL BOTH EYES PRN ×2 (11:48→18:30)
[2019-08-10] MEDS: traZODone TAB* 50 MG TAB PO SCH (20:26)
[2019-08-11] MEDS: Vitamin THERAPEUTIC TAB PO SCH (09:39)
[2019-08-11] MEDS: Escitalopram * 10 MG TAB PO SCH (09:39)
[2019-08-11] MEDS: busPIRone TAB* 15 MG PO SCH ×3 (09:39→20:48)
[2019-08-11] MEDS: Acetaminophen TAB* 325 MG PO PRN (09:39)
[2019-08-11] MEDS: Artificial Tears* 15 ML BTL BOTH EYES PRN (11:52)
[2019-08-11] MEDS: traZODone TAB* 50 MG TAB PO SCH (20:48)
[2019-08-12 09:12] VITALS: BP 110/72
[2019-08-12] MEDS: busPIRone TAB* 15 MG PO SCH ×3 (09:15→20:43)
[2019-08-12] MEDS: Vitamin THERAPEUTIC TAB PO SCH (09:15)
[2019-08-12] MEDS: Escitalopram * 10 MG TAB PO SCH (09:15)
[2019-08-12] MEDS: Artificial Tears* 15 ML BTL BOTH EYES PRN ×2 (11:03→19:58)
--- NOTE | 2019-08-12 11:19 | PN ---
BSU: Group Therapy Note - Service Type Service Type: [id number] Group Psychotherapy - Cognitive Behavioral Group Therapy ( CBT):Patient was attentive and participatory in CBT programming this morning, and remained in good behavioral control. Patient expressed positive insights regarding relevant treatment interventions and goals.
--- NOTE | 2019-08-12 13:51 | PN ---
Subjective - Subjective Date of Service: 08/12/19 Service Type: 51569 Hosp care 35 min high complexity Subjective: Nursing Report: Patient was visible on unit, no behavioral incidents. Slept overnight. Attending group activities. CC: "I am always hot and cold" Patient was seen and evaluated today in the common room. The patient reported she is going through menopause and is always hot and cold. Patient inquiring about when she is going to be transferred to rehab. She reported having adequate appetite and sleep. The patient reported attending and participating in day groups. Per nursing no behavioral issues or overnight events reported. Patient reported that she is tolerating medications without side effects. Objective - General Observations Appearance: Neat Appears Stated Age: Yes Stature: WNL Posture: WNL Eye Contact: Average Behavior/Activity: Accelerated - Interaction Observations Attitude Towards Examiner: Anxious Stated Mood: Anxious Affect: Restricted Speech Pattern/Tone: Normal Volume Thought Process: [place] Perception: WNL Thought Content: Self-Deprecatory Hallucination Type: None Delusion Type: None - Cognitive Function Orientation: A&O x 4 - Medication Compliance Cooperative with Inpatient Medication Regimen: Yes - Group Participation Participates in Group Activities: Yes Assessment - Assessment Merits Inpatient Hospitalization: For Immediate Safety Clinical Impression: 48 year old female with history of Borderline Personality Disorder, Tobacco use disorder, Cocaine use disorder, Opiate withdrawal came to the hospital following a suicide attempt by overdosing on Tramadol. Plan - Plan Treatment Plan: Name: SMILEY AYALA Birthdate: 1970 [id number] Plan #Q30 minute observation with staff pass # The patient requires psychiatric inpatient admission at this time to assure safety, receive treatment and work toward stabilization. # Continue lexapro 20mg po daily for depression # DBT #Trazodone 100mg qhs # Buspar 15mg TID for anxiety # Substance abuse rehabilitation referral made and [facility] August 20 has a opening # Social work in process of securing inpatient substance abuse referral # Collaboration with Social Work Substance Abuse resources offered and patient interested in pursing substance abuse rehabilitation Tobacco use disorder: nicotine supplement offered and put in place. #Goals before discharge include: To eliminate/ reduce suicidal ideation Tentative Discharge: Pending psychiatric stabilization Sodium 140 mmol/L (135-145) 07/31/19 08:54 Potassium 3.7 mmol/L (3.5-5.0) 07/31/19 08:54 BUN 13 mg/dL (6-24) 07/31/19 08:54 Creatinine 0.75 mg/dL (0.51-0.95) 07/31/19 08:54 Hemoglobin A1c 5.3 % (4.0-5.6) 08/01/19 07:41 Calcium 10.0 mg/dL (8.6-10.3) 07/31/19 08:54 AST 11 U/L (13-39) L 07/31/19 08:54 ALT 9 U/L (7-52) 07/31/19 08:54 Triglycerides 81 mg/dL 08/01/19 07:41 Cholesterol 191 mg/dL 08/01/19 07:41 LDL Cholesterol 111 mg/dL 08/01/19 07:41 Continued Medication Management: Continue Outpt Medication Medications: Current Medications Acetaminophen (Tylenol Tab*) 650 mg PO Q4H PRN PRN Reason: PAIN or TEMP > 101 F Last Admin: 08/11/19 09:39 Dose: 650 mg Al Hydrox/Mg Hydrox/Simethicone (Maalox Plus*) 30 ml PO Q4H PRN PRN Reason: INDIGESTION Buspirone HCl (Buspar Tab *) 15 mg PO TID [facility] Last Admin: 08/12/19 09:15 Dose: 15 mg Escitalopram Oxalate (Lexapro *) 20 mg PO DAILY [facility] Last Admin: 08/12/19 09:15 Dose: 20 mg Multivitamins (Theragran Tab*) 1 tab PO DAILY [facility] Last Admin: 08/12/19 09:15 Dose: 1 tab Nicotine Polacrilex (Nicotine Gum*) 2 mg PO Q2H PRN PRN Reason: CRAVING Polyvinyl Alcohol (Polyvinyl Alcohol 1.4% Opth*) 1 drop BOTH EYES Q2H PRN PRN Reason: DRY EYE Last Admin: 08/12/19 11:03 Dose: 1 drop Sodium Chloride (Sodium Chloride 0.65% Nasal Drops*) 1 drop BOTH NARES Q4H PRN PRN Reason: DRY NOSE Last Admin: 08/09/19 09:22 Dose: 1 drp Trazodone HCl (Desyrel Tab*) 100 mg PO BEDTIME [facility] Last Admin: 08/11/19 20:48 Dose: 100 mg - Discharge Plan Discharge Plan: Inpatient Hospitalization
[2019-08-12] MEDS: traZODone TAB* 50 MG TAB PO SCH (20:43)
[2019-08-12] MEDS: Acetaminophen TAB* 325 MG PO PRN (20:43)
[2019-08-13] MEDS: busPIRone TAB* 15 MG PO SCH (09:08)
[2019-08-13] MEDS: Escitalopram * 10 MG TAB PO SCH (09:09)
[2019-08-13] MEDS: Vitamin THERAPEUTIC TAB PO SCH (09:09)
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
== END 2019-08-13 11:05 | DRG 881 ==
LOC: ED 08:29 → BSU 21:09
PROVIDERS: ADMIT Psychiatry & Neurology Psychiatry; ATTEND Psychiatry & Neurology Psychiatry
PROC: GZHZZZZ Group Psychotherapy (ICD-10-PCS; principal; 2019-08-12)
DX: F32.9 Major depressive disorder, single episode, unspecified (principal); F60.3 Borderline personality disorder; F17.210 Nicotine dependence, cigarettes, uncomplicated; Z62.810 Personal history of physical and sexual abuse in childhood; F14.90 Cocaine use, unspecified, uncomplicated; T40.4X2A Poisoning by other synthetic narcotics, intentional self-harm, initial encounter; R51 Headache; F41.9 Anxiety disorder, unspecified; F17.200 Nicotine dependence, unspecified, uncomplicated; Z56.0 Unemployment, unspecified; Z91.5 Personal history of self-harm; Z88.0 Allergy status to penicillin; Y92.9 Unspecified place or not applicable; Z28.21 Immunization not carried out because of patient refusal
CPT/HCPCS: 36415; 80053; 80061; 80307; 80320; 80329; 81003; 81015; 83036; 83605; 84443; 84484; 85025; 86803; 87086; 87389; 90853; 93005; 99222; 99231; 99233; 99238; 99284; A9270-GY; G0480

== ENCOUNTER 2021-06-26 23:43 | Inpatient (IN) ==
[2021-06-27 01:00] LABS: ABS Lymphocytes 1.1 10^3/ul (1.0-4.8); ABS Monocytes 0.5 10^3/ul (0-0.8); ABS Neutrophils 2.6 10^3/ul (1.5-7.7); Eosinophil % 0.4 %; Hematocrit 37 % (35-47); Hemoglobin 12.4 g/dL (12.0-16.0); Lymphocyte % 25.5 %; Mean Corpuscular HGB Conc 34 g/dL (31-36); Mean Corpuscular Hemoglobin 32 pg (27-31); Mean Corpuscular Volume 96 fL (80-97); Platelet Count 337 10^3/uL (150-450); Red Blood Count 3.85 10^6 /uL (3.70-4.87); Red Cell Distribution Width 15 % (10-15); White Blood Count 4.3 10^3/uL (3.5-10.8)
[2021-06-27 01:14] LABS: ALT 12 U/L (7-52); AST 13 U/L (13-39); Albumin 3.8 g/dL (3.2-5.2); Albumin/Globulin Ratio 1.5 (1-3); Alkaline Phosphatase 36 U/L (35-149); Anion Gap 8 mmol/L (2-11); Blood Urea Nitrogen 13 mg/dL (6-24); CO2 Carbon Dioxide 25 mmol/L (22-32); Calcium 9.2 mg/dL (8.6-10.3); Chloride 106 mmol/L (101-111); Globulin 2.5 g/dL (2-4); Glucose 94 mg/dL (70-100); Potassium 3.2 mmol/L (3.5-5.0); Sodium 139 mmol/L (135-145); Total Protein 6.3 g/dL (6.4-8.9)
[2021-06-27 01:21] LABS: HCG Pregnancy 1.02 mIU/mL
[2021-06-27 02:04] LABS: Acetaminophen < 15 mcg/mL; Alcohol, S < 13 mg/dL (<13); Salicylate < 2.50 mg/dL (<30)
[2021-06-27 02:19] LABS: TSH Ultra Thyroid Stim Horm 0.17 mcIU/mL (0.34-5.60)
[2021-06-27] MEDS ORDERED: diPHENhydraMINE IV 50 MG/ML 1 ml VIAL (BENADRYL) IM ONE (04:34)
[2021-06-27] MEDS ORDERED: Haloperidol 5 mg/ml SDV IV/IM 5 MG/ML AMP IM ONE (04:34)
[2021-06-27] MEDS ORDERED: LORazepam 2 mg VIAL 1 ml IM ONE (04:34)
[2021-06-27] MEDS ORDERED: Lorazepam PYXIS KEY PRN (04:34)
[2021-06-27] MEDS ORDERED: Al Hydrox/Mg Hydrox/Simet LIQ 30 ML UDC PO PRN (04:51)
[2021-06-27] MEDS ORDERED: Dextran 70/Hypromellose Tears Eye Drops 15 ml BTL (for Artificials Tears) BOTH EYES PRN (04:53)
[2021-06-27] MEDS ORDERED: Midazolam 5 mg/5 ml VIAL 1 mg/ml 5 ml VIAL (5 mg) ONE (04:55)
[2021-06-27] MEDS ORDERED: Midazolam 2 mg/2 ml VIAL 1 mg/ml 2 ml VIAL (2 mg) IM ONE (04:56)
[2021-06-27] MEDS ORDERED: Midazolam 2 mg/2 ml VIAL 1 mg/ml 2 ml VIAL (2 mg) ONE (04:58)
[2021-06-27] MEDS ORDERED: Nicotine GUM 2MG FRUIT FLAVOR PO PRN (05:00)
[2021-06-27] MEDS ORDERED: chlorproMAZINE TAB 50 MG Q6H PRN AGITATION PO (05:00)
[2021-06-27 05:36] LABS: Rapid COVID-19 Molecular Undetected (Undetected)
[2021-06-27 06:30] VITALS: BP 0/0
[2021-06-27] MEDS: Nicotine PATCH 14 MG/24 HR PATCH TRANSDERM SCH (11:43)
[2021-06-27] MEDS: Vitamin THERAPEUTIC TAB PO SCH (13:09)
[2021-06-28] MEDS: Nicotine PATCH 14 MG/24 HR PATCH TRANSDERM SCH (08:15)
[2021-06-28] MEDS: Vitamin THERAPEUTIC TAB PO SCH (08:17)
[2021-06-28 12:00] LABS: Free T4 0.91 ng/dL (0.61-1.12)
[2021-06-29] MEDS: Nicotine PATCH 14 MG/24 HR PATCH TRANSDERM SCH (08:34)
[2021-06-29] MEDS: Vitamin THERAPEUTIC TAB PO SCH (08:36)
== END 2021-06-29 16:00 | disposition home or self-care (01) | DRG 897 ==
LOC: ED 23:43 → BSU 06-27 05:05
PROVIDERS: ADMIT Psychiatry & Neurology Psychiatry; ATTEND Psychiatry & Neurology Psychiatry